=== PATIENT | male | born 1950 | race Two or more races ===

== ENCOUNTER 2024-11-21 10:05 | Outpatient (RCR) | payer MEDICARE, MEDICAID, SELFPAY ==
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
== END 2024-12-07 23:59 | disposition home or self-care (01) ==
LOC: CPTX 10:05
PROVIDERS: PCP Physician Assistant; Referring Provider Physician Assistant; Visit Provider Physician Assistant
DX: M48.061 Spinal stenosis, lumbar region without neurogenic claudication (principal)
CPT/HCPCS: 97162

== ENCOUNTER → 2025-03-06 | Outpatient (CLI) | payer MEDICARE, MEDICAID, SELFPAY ==
--- NOTE | 2025-03-06 13:30 | XR_ITS ---
Examination: CT abdomen without intravenous contrast. Coronal 2-D reconstructions. Sagittal 2-D reconstructions. Date and time of exam:March 06, 2025 1334 hours INDICATIONS: Right upper abdominal pain beginning 3 months ago, diagnosis liver disease CTDI: vol (mGy): 7.04 DLP: (mGycm): 223 Technique: Axial images of the abdomen have been obtained, 3 mm slice thickness, without intravenous contrast 2-D sagittal coronal reconstructions Low dose protocols were performed. One or more of the following dose reduction techniques were used; automated exposure control, adjustment of the mA and/or KV according to patient size, use of iterative reconstruction technique. Findings: Solid appearing 22 mm right lobe liver lesion, axial image 48 Cystic lesion versus hemangioma left lobe of the liver, 16 mm Spleen not enlarged Contracted No pancreatic or adrenal mass No renal or ureteral calculi, no hydronephrosis Aorta normal size No CT findings of appendicitis or bowel obstruction IMPRESSION: 22 mm solid-appearing right lobe liver lesion, recommend MRI abdomen liver follow-up pre and postcontrast to assess this liver lesion
== END | disposition home or self-care (01) ==
PROVIDERS: PCP Physician Assistant; Referring Provider Physician Assistant; Visit Provider Physician Assistant
DX: K76.9 Liver disease, unspecified (principal)
CPT/HCPCS: 74150

== ENCOUNTER → 2025-05-24 | Outpatient (CLI) | payer MEDICARE, MEDICAID, SELFPAY ==
--- NOTE | 2025-05-24 14:00 | XR_ITS ---
Examination: MRI abdomen with intravenous contrast. MRI abdomen without intravenous contrast. Date and time of exam: May 24, 2025 1450 hours INDICATIONS: CT abdomen pelvis February 26, 2025 22 mm right lobe liver lesion Technique: Multiple axial, sagittal and coronal sections of the abdomen obtained. Transverse images, TR 6020, TE 107. T1 weighted transverse images, TR 582, TE 9.5. T2-weighted sagittal images, TR 4000, TE 105. T2-weighted sagittal images, TR 4000, TE 5. Coronal images, TR 4210, TE 107. Axial and coronal images are obtained post 19 cc intravenous injection, gadolinium. Findings: T2-weighted precontrast images demonstrate 18 mm and 22 mm liver lesions with increased signal The 22 mm mid right liver lesion does show diffuse enhancement The left lobe liver lesion shows no enhancement No biliary tract dilatation Spleen is not enlarged No pancreatic or adrenal mass No ascites No abdominal lymphadenopathy IMPRESSION: 22 mm right lobe liver lesion shows diffuse enhancement, differential would include hepatic metastasis Recommend 3 month follow-up MRI abdomen pre and postcontrast
== END | disposition home or self-care (01) ==
PROVIDERS: PCP Physician Assistant; Referring Provider Physician Assistant; Visit Provider Physician Assistant
DX: K76.9 Liver disease, unspecified (principal)
CPT/HCPCS: 74183; A9577

== ENCOUNTER 2025-08-06 09:27 | Outpatient (RCR) | payer MEDICARE, MEDICAID, SELFPAY ==
--- NOTE | 2025-08-06 20:58 | CTCCONSULT_ITS ---
Patient: ADIA RODRIGUEZ : 1950 MR#: [id number] Page 3 of 4 CONSULTATION NOTE DATE OF CONSULTATION: 08/06/2025 NAME: ADIA RODRIGUEZ ACCOUNT: [id number] : 1950 AGE: 74 REFERRING PHYSICIAN: Jany Johnson MD PRIMARY PHYSICIAN: Jany Johnson MD REASON FOR VISIT: New diagnosis of cancer ONCOLOGY HISTORY: DIAGNOSIS: Like metastatic cancer to liver DATE OF DIAGNOSIS: 12/14/2024 STAGE/TNM: Stage 4 TREATMENT HISTORY: Care?Plan Start?Date Cycle Day Intent HISTORY OF PRESENT ILLNESS: 74-year-old male with new diagnosis of likely metastatic cancer 12/14/2024The study demonstrates normal echogenicity of the liver parenchyma without dilatation of the intrahepatic biliary tree. Ill-defined hypoechoic nodule in the right lobe of liver measuring 2.9 x 1.7 cm, CT examination with contrast material may be helpful. The gallbladder is free of calculi. The common bile duct measures 4.2 m diameter. Gallbladder wall measures 2.1 mm. The pancreas is poorly seen due to large amount of intra-abdoninal bowel gas. There is no evidence of obstructive uropathy or nephrolithiasis. No a fluid is noted in the abdomen. The spleen is intact. 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 Tobacco?Use:?Denies ETOH?Use:?Socially Drug?Note:?Denies Social?History?Note:?Lives?alone MEDICATIONS: 1. atorvastatin - 40 mg 1 tab Daily 2. lisinopril - 20 mg 1 tab Daily 3. pantoprazole - 40 mg 1 Twice a Day Medications Last Reconciled by Yessenia Simon RN on 08/06/2025 ALLERGIES: No Known Drug Allergies REVIEW OF SYSTEMS: A complete 14-point review of systems was performed and is negative except as noted in interval history. PHYSICAL EXAMINATION: VITAL SIGNS: Temperature?97.2, B/P?161/90, Height?66?inches, Oxygen?Saturation?99% Weight?169?lbs PAIN: 2 - Mild pain ECOG Performance Status: 0 - Asymptomatic and fully active GENERAL APPEARANCE: Appears well, in no apparent distress, appropriately interactive. HEENT: Normocephalic, no temporal wasting, normal conjunctiva, no scleral icterus, normal hearing, lips without lesions, neck normal range of motion. CARDIOVASCULAR: Not assessed. PULMONARY: Normal respiratory effort, no respiratory distress or use of accessory muscles, speaking in full sentences, no tachypnea. EXTREMITIES: No pedal edema or cyanosis. SKIN: Normal skin appearance. NEUROLOGIC: Alert and oriented x4. PSHYCHIATRIC: Appropriate affect, mood normal, behavior normal, intact thought and speech. LABORATORY DATA: I have personally reviewed and interpreted each of the patient?s relevant lab tests, abnormal findings are below: Date 08/06/25 ??WHITE?BLOOD?COUNT?(Thou/mm3) 6.5 ??RED?BLOOD?COUNT?(Miln/mm3) 4.89 ??HEMOGLOBIN?(gm/dl) 14.6 ??HEMATOCRIT?(%) 44.0 ??PLATELET?COUNT?(Thou/mm3) 264 ??NEUTROPHILS?%,?AUTO?(%) 72 ??LYMPH?%,?AUTO?(%) 19 ??NEUTROPHILS,?AUTO?(Thou/mm3) 4.7 ??GLUCOSE,RANDOM?(mg/dL) 149?H ??BLOOD?UREA?NITROGEN?(mg/dL) 8?L ??CREATININE?(mg/dL) 0.90 ??SODIUM?(mmol/L) 139 ??POTASSIUM?(mmol/L) 4.2 ??CHLORIDE?(mmol/L) 102 ??CrCl?(CandG)?(ml/min) 75.71 ??AST/SGOT?(Unit/L) 21 ??ALT/SGPT?(Unit/L) 15 ??ALKALINE?PHOSPHATASE?(Unit/L) 65 ??BILIRUBIN,?TOTAL?(mg/dL) 0.9 ??PROTEIN?TOTAL?(gm/dl) 6.6 ??ALBUMIN,?SERUM?(gm/dl) 4.7 ??GLOBULIN?(gm/dl) 1.9?L ??ALBUMIN/GLOBULIN?RATIO 2.5?H ??CALCIUM,?SERUM?(mg/dL) 8.7 ??CALCIUM?SERUM?(CORRECTED)?(mg/dL) 8.7 ??CEA?(O*)?(ng/ml) 1.0 ASSESSMENT/PLAN: Metastatic cancer to liver No biopsy awailable Ordered biopsy of liver masses stephon Tumor markers Need port once biopsy is done Get colonoscopy report from the GI RTC in 3 weeks with labs and imaging ORDERS: Order # Description [id number] CEA + AFP + CBC with Auto Diff + Comprehensive Metabolic Panel - 12 [id number] CA [id number] MD Follow Up 3 Week [id number] Hep A, B and C panel [id number] CT Scan + With Contrast + Chest + Abdomen and Pelvis RETURN TO CLINIC: I reviewed the diagnosis, prognosis, and recommended treatment/procedure options with the patient (and/or their legal parts counter representative), including the potential benefits, risks, side effects and alternative therapies. We also discussed the option of no treatment and the possibility of clinical trial participation, if applicable. All questions were addressed, and they demonstrated understanding. They provided informed consent to proceed with the proposed plan of care. BILLING AND COMPLIANCE: I reviewed external records from providers outside my specialty as summarized above. I spent a total of 50 minutes on this patient?s care on the day of their visit excluding time spent related to any billed procedures. This time includes time spent with the patient as well as time spent documenting in the medical record, reviewing patients records and tests, obtaining history, placing orders, communicating with other healthcare professionals, counseling the patient, family or caregiver, and/or care coordination for the diagnoses above. Electronically Signed by: {Object.Sanct_ID*PnP.NameFL@M}, {Object.Sanct_ID*PnP.Suffix@U} D: {Object.Sanct_Date} T: {Object.Sanct_Time} CC: PCP: Jany Johnson Referring: Jany Johnson This document was completed utilizing speech recognition software. Grammatical errors, random word insertions, pronoun errors, and incomplete sentences are an occasional consequence of this system due to software limitations, ambient noise, and hardware issues. Any formal questions or concerns about the content, text or information contained within the body of this dictation should be directly addressed to the provider for clarification.
== END 2025-08-09 23:59 | disposition home or self-care (01) ==
LOC: SCTC 09:27
PROVIDERS: PCP Physician Assistant; Referring Provider Physician Assistant; Visit Provider Internal Medicine Hematology & Oncology
DX: C78.7 Secondary malignant neoplasm of liver and intrahepatic bile duct (principal); C80.1 Malignant (primary) neoplasm, unspecified
CPT/HCPCS: 99213; G0463

== ENCOUNTER → 2025-08-06 | Outpatient (CLI) | payer MEDICARE, MEDICAID, SELFPAY ==
[2025-08-06 13:19] LABS: Basophils # (Auto) 0.0 Thou/mm3 (0.0-0.2); Basophils % (Auto) 1 % (0-2.5); Eosinophils # (Auto) 0.1 Thou/mm3 (0.0-0.5); Eosinophils % (Auto) 1 % (0-10); Hematocrit 44.0 % (41.0-53.0); Hemoglobin 14.6 g/dL (13.5-16.0); Immature Granulocytes Auto 0.04 Thou/mm3 (0.00-0.00); Lymphocytes # (Auto) 1.2 Thou/mm3 (1.0-4.8); Lymphocytes % (Auto) 19 % (10-50); Mean Corpuscular HGB Conc 33.2 g/dl (31.0-37.0); Mean Corpuscular Hemoglobin 29.9 pg (25.0-35.0); Mean Corpuscular Volume 90 fL (80-100); Monocytes # (Auto) 0.5 Thou/mm3 (0.0-0.8); Monocytes % (Auto) 7 % (0-12); Neutrophils # (Auto) 4.7 Thou/mm3 (1.8-7.7); Neutrophils % (Auto) 72 % (37-80); Nucleated Red Blood Cell # 0.00 Thou/mm3 (0.00-0.00); Nucleated Red Blood Cell % 0 /100 WBC (0); Platelet Count 264 Thou/mm3 (140-440); RDW Standard Deviation 44.8 fL (35.1-43.9); Red Blood Count 4.89 Miln/mm3 (4.50-5.90); White Blood Count 6.5 Thou/mm3 (3.8-10.6)
[2025-08-06 13:36] LABS: Alanine Aminotransferase 15 U/L (10-49); Albumin, Serum 4.7 gm/dL (3.4-4.8); Albumin/Globulin Ratio 2.5 (1.2-2.2); Alkaline Phosphatase 65 U/L (46-116); Anion Gap 11 (7-16); Aspartate Amino Transferase 21 U/L (0-34); BUN/Creatinine Ratio 9 Ratio (12-20); Bilirubin,Total 0.9 mg/dL (0.3-1.2); Blood Urea Nitrogen 8 mg/dL (9-23); Calcium 8.7 mg/dL (8.3-10.6); Calcium (Corrected) 8.7 mg/dL (8.5-10.1); Carbon Dioxide 25.6 mMol/L (20.0-31.0); Chloride 102 mMol/L (98-107); Creatinine (Component) 0.9 mg/dL (0.6-1.3); Globulin 1.9 gm/dL (2.3-3.5); Glucose 149 mg/dL (74-106); Osmolality,Calculated 278 (275-295); Potassium 4.2 mMol/L (3.4-5.1); Sodium 139 mMol/L (136-145); Total Protein 6.6 gm/dL (5.7-8.2); eGFR > 60 See Note
[2025-08-06 14:26] LABS: AFP Non-Pregnant 2.40 ng/mL (<8.10); Carcinoembryonic Antigen 1.0 ng/mL (0.0-5.0); Hepatitis A Antibody IgM Non Reactive (Non React); Hepatitis B Core Antibody IgM Non Reactive (Non React); Hepatitis B Surface Antigen Non Reactive (Non React); Hepatitis C Antibody Non Reactive (Non React)
[2025-08-12 07:00] LABS: CA 19-9 Antigen* 35 U/mL (<34)
== END | disposition home or self-care (01) ==
LOC: SCTO 11:50
PROVIDERS: PCP Physician Assistant; Referring Provider Internal Medicine Hematology & Oncology; Visit Provider Internal Medicine Hematology & Oncology
DX: R93.2 Abnormal findings on diagnostic imaging of liver and biliary tract (principal); R76.89 Other specified abnormal immunological findings in serum
CPT/HCPCS: 36415; 80053; 80074; 82105; 82378; 85025; 86301

== ENCOUNTER → 2025-08-27 | Outpatient (CLI) | payer MEDICARE, MEDICAID, SELFPAY ==
[2025-08-27 12:34] LABS: Alanine Aminotransferase 16 U/L (10-49); Albumin, Serum 5.0 gm/dL (3.4-4.8); Albumin/Globulin Ratio 2.5 (1.2-2.2); Alkaline Phosphatase 69 U/L (46-116); Anion Gap 10 (7-16); Aspartate Amino Transferase 21 U/L (0-34); BUN/Creatinine Ratio 9 Ratio (12-20); Bilirubin,Total 0.9 mg/dL (0.3-1.2); Blood Urea Nitrogen 8 mg/dL (9-23); Calcium 9.3 mg/dL (8.3-10.6); Calcium (Corrected) 9.3 mg/dL (8.5-10.1); Carbon Dioxide 24.6 mMol/L (20.0-31.0); Chloride 104 mMol/L (98-107); Creatinine (Component) 0.9 mg/dL (0.6-1.3); Globulin 2.0 gm/dL (2.3-3.5); Glucose 110 mg/dL (74-106); Osmolality,Calculated 276 (275-295); Potassium 4.2 mMol/L (3.4-5.1); Sodium 139 mMol/L (136-145); Total Protein 7.0 gm/dL (5.7-8.2); eGFR > 60 See Note
[2025-08-27 13:04] LABS: AFP Non-Pregnant 3.40 ng/mL (<8.10); Carcinoembryonic Antigen 0.9 ng/mL (0.0-5.0); Hepatitis A Antibody IgM Non Reactive (Non React); Hepatitis B Core Antibody IgM Non Reactive (Non React); Hepatitis B Surface Antigen Non Reactive (Non React); Hepatitis C Antibody Non Reactive (Non React)
[2025-08-27 13:40] LABS: Basophils # (Auto) 0.0 Thou/mm3 (0.0-0.2); Basophils % (Auto) 1 % (0-2.5); Eosinophils # (Auto) 0.1 Thou/mm3 (0.0-0.5); Eosinophils % (Auto) 2 % (0-10); Hematocrit 45.8 % (41.0-53.0); Hemoglobin 15.3 g/dL (13.5-16.0); Immature Granulocytes Auto 0.03 Thou/mm3 (0.00-0.00); Lymphocytes # (Auto) 1.6 Thou/mm3 (1.0-4.8); Lymphocytes % (Auto) 29 % (10-50); Mean Corpuscular HGB Conc 33.4 g/dl (31.0-37.0); Mean Corpuscular Hemoglobin 29.7 pg (25.0-35.0); Mean Corpuscular Volume 89 fL (80-100); Monocytes # (Auto) 0.5 Thou/mm3 (0.0-0.8); Monocytes % (Auto) 9 % (0-12); Neutrophils # (Auto) 3.1 Thou/mm3 (1.8-7.7); Neutrophils % (Auto) 59 % (37-80); Nucleated Red Blood Cell # 0.00 Thou/mm3 (0.00-0.00); Nucleated Red Blood Cell % 0 /100 WBC (0); Platelet Count 285 Thou/mm3 (140-440); RDW Standard Deviation 42.3 fL (35.1-43.9); Red Blood Count 5.15 Miln/mm3 (4.50-5.90); White Blood Count 5.3 Thou/mm3 (3.8-10.6)
[2025-09-02 06:49] LABS: CA 19-9 Antigen* 35 U/mL (<34)
== END | disposition home or self-care (01) ==
LOC: COPL 11:36 → SCTO 08-29 08:27
PROVIDERS: Referring Provider Internal Medicine Hematology & Oncology; Visit Provider Internal Medicine Hematology & Oncology
DX: C78.7 Secondary malignant neoplasm of liver and intrahepatic bile duct (principal)
CPT/HCPCS: 36415; 80053; 80074; 82105; 82378; 85025; 86301

== ENCOUNTER → 2025-09-17 | Outpatient (CLI) | payer MEDICARE, MEDICAID, SELFPAY ==
--- NOTE | 2025-09-17 16:00 | XR_ITS ---
Examination: CT chest with intravenous contrast CT abdomen with intravenous contrast CT pelvis with intravenous contrast 2-D coronal and sagittal reconstructions Time of exam: September 17, 2025, 1617 hours, comparison CT abdomen without intravenous contrast March 06, 2025 INDICATIONS: Abnormal findings on diagnostic imaging of the liver, intermittent right upper abdominal pain beginning 2 years ago, 22 mm solid-appearing right lobe liver lesion on MRI abdomen without contrast March 06, 2025, 22 mm right lobe liver lesion showing diffuse enhancement on the MR abdomen May 24, 2025 CTDI: vol (mGy) : 6.77 DLP: (mGycm): 493 Technique: Multiple axial images of the chest, abdomen and pelvis with intravenous contrast, 3.0 mm slice thickness. Images obtained post intravenous injection Isovue 370 60 cc. 2-D sagittal and coronal reconstructions. Low dose protocols were performed. One or more of the following dose reduction techniques were used; automated exposure control, adjustment of the mA and/or KV according to patient size, use of iterative reconstruction technique. Findings: 8 mm right thyroid nodule No thoracic aortic aneurysm dilatation or dissection Pulmonary artery opacification is reduced No paratracheal tracheobronchial or bronchopulmonary adenopathy No pneumonia, pulmonary edema or pleural disease larger wedge-shaped lesion in the lateral right lobe of the liver, on the current study measuring at least 6.4 x 4.6 x 3.4 cm This lesion is in the upper right lobe of the liver which makes biopsy challenging as there is intervening lung between the abdominal wall and the liver lesion Pancreas is not enlarged No adrenal mass No pathologic abdominal or pelvic lymphadenopathy Colonic diverticulosis Bladder intact AP prostate dimension 35 mm Moderate lumbar and thoracic degenerative disc disease IMPRESSION: 8 mm right thyroid nodule Enlarging enhancing lateral upper right lobe liver lesion, 6.4 x 4.6 x 3.4 cm
== END | disposition home or self-care (01) ==
PROVIDERS: PCP Family Medicine; Referring Provider Internal Medicine Hematology & Oncology; Visit Provider Internal Medicine Hematology & Oncology
DX: E04.1 Nontoxic single thyroid nodule (principal); K76.9 Liver disease, unspecified
CPT/HCPCS: 71260; 74177; A4649; Q9967